=== PATIENT | female | born 1970 | race Caucasian/White ===

== ENCOUNTER 2019-05-12 09:42 | Day surgery (SDC) | payer BC, OTHER ==
[2019-05-05 18:20] VITALS: BMI 22.8
[~2019-05-12 09:42] MED LIST: LACTATED RINGERS 1,000 ML IV SCH; LIDOCAINE 1% 20 ML VIAL (10MG/ML) FOR IV START INTRADERMA PRN; MIDAZOLAM 2 MG/2 ML VIAL IV PRN; Pre Op ABX Message 1 EACH MISC MISCELLANE ONE
[2019-05-12 10:46] VITALS: RESP 16; TEMP 97.9
[2019-05-12] MEDS ORDERED: fentaNYL (PF) 50 MCG/ML 2 ML AMP ONE (11:05)
[2019-05-12] MEDS ORDERED: PROPOFOL 10 MG/ML 20 ML VIAL IV ONE (11:05)
[2019-05-12] MEDS ORDERED: LIDOCAINE 1% INJ 10MG/ML (20 ML MDV) ONE (11:05)
[2019-05-12] MEDS ORDERED: MIDAZOLAM 2 MG/2 ML VIAL ONE (11:05)
[2019-05-12] MEDS ORDERED: LIDOCAINE 2% INJ 20 MG/ML SQ ONE (11:14)
[2019-05-12] MEDS ORDERED: BUPIVACAINE (PF) 0.5% 30 ML VIAL SQ ONE (11:14)
[2019-05-12 12:08] VITALS: BP 129/85; PULSE 87
--- NOTE | 2019-05-13 07:48 | OP ---
OPERATIVE REPORT DATE OF SURGERY: 05/12/2019 PREOPERATIVE DIAGNOSIS: Left ring trigger finger. POSTOPERATIVE DIAGNOSIS: Left ring trigger finger. PROCEDURE: Release left ring trigger finger. DESCRIPTION OF PROCEDURE: The patient was taken to the operative suite. A transverse incision was made in the proximal skin crease of the left ring finger. Blunt dissection was taken through the subcutaneous tissue to identify the neurovascular bundles. They were kept in view and gently retracted out of harms way while a longitudinal release of the A1 sandra was performed. The flexor pollicis longus was examined and slight swelling was noted but the tendon was intact. The tendon was gently retracted from the wound to ensure no adhesion. The wound was then thoroughly irrigated, tourniquet released. Hemostasis was acquired and the skin was closed with 5-0 nylon suture. Soft bulky dressing applied. The patient was taken to the recovery room in satisfactory condition. MMRENNY / HEIDIN: [id number] /
== END 2019-05-12 12:58 | disposition home or self-care (01) ==
LOC: OR 09:42
PROVIDERS: ATTEND Orthopaedic Surgery Hand Surgery
DX: M65.352 Trigger finger, left little finger (principal); R00.2 Palpitations; Z79.891 Long term (current) use of opiate analgesic; Z79.1 Long term (current) use of non-steroidal anti-inflammatories (NSAID); Z79.899 Other long term (current) drug therapy; Z98.890 Other specified postprocedural states; Z90.49 Acquired absence of other specified parts of digestive tract; Z98.1 Arthrodesis status; Z90.89 Acquired absence of other organs; Z83.3 Family history of diabetes mellitus
CPT/HCPCS: 26055; J2001 ×2; J2250; J3010; J2704